=== PATIENT | female | born 1940 | race Caucasian/White ===

== ENCOUNTER → 2018-06-17 | Outpatient (REF) ==
[~2018-06-17] MED LIST: ANUSOL-HC SUPPO25 MG RC; ATENOLOL25 MG PO; CALTRATE-600 W600 MG PO; CEFTIN 250250 MG/TAB PO; CEPHALEXIN500 M1 PO; CLEOCIN HCL300 MG PO; FERROUS SU325 MG/TAB PO; FOLIC ACID PO; IBUPROFEN 200200 MG PO; NORCO 325 MG-51 TAB PO; PHENERGAN W/CO120 M1 PO; PREDNISONE1 MG PO; PREDNISONE20 MG PO; PRINIVIL10 MG PO; PRINIVIL5 MG PO; REMICADE V100 MG/VIA IV; SYNTHROID0.112 MG/T PO; TENORMIN 5050 MG/TAB PO; TYLENOL 500MG500 MG PO; VITAMIN C500 MG PO; ZOCOR40 MG PO; ZOCOR5 MG PO; ZOFRAN 4MG T4 MG/TAB PO
== END ==
LOC: ZLAB.WCH 18:26
DX: Z01.89 Encounter for other specified special examinations (principal)